=== PATIENT | female | born 1985 | race African-American/Black ===

== ENCOUNTER 2017-09-02 21:49 | Observation (INO) | payer BC, OTHER ==
[2017-09-02 22:58] LABS: Bilirubin Negative (Negative); Blood, Urine Negative (Negative); Clarity Clear (Clear); Glucose, Urine (Dipstick) Negative (Negative); Leukocyte Negative (Negative); Nitrite Negative (Negative); Protein, Urine (Dipstick) Negative (Neg-Trace); pH, Urine 7.5 (5.0-9.0)
[2017-09-02 23:22] LABS: Hemoglobin 11.7 g/dL (12.0-16.0); Mean Corpuscular HGB CONC 33.8 g/dL (32.0-36.0); Mean Corpuscular Hemoglobin 28.9 pg (27.0-31.0); Mean Corpuscular Volume 85.6 fl (81.0-99.0); Mean Platelet Volume 7.3 fL (7.4-10.4); Platelet Count 373 thou/uL (130-400); RBC Distribution Width 11.7 % (11.5-14.5); Red Blood Cell (RBC) Count 4.05 mill/uL (4.20-5.40); White Blood Cell (WBC) Count 15.9 thou/uL (4.8-10.8)
[2017-09-02 23:23] LABS: BHCG - Serum Negative (NEGATIVE); Pregs Control Background? CLEAR/WHITE (CLR/WHITE); Pregs Control Bar Appear? YES (CONTROL BAR)
[2017-09-02 23:32] LABS: Band 2 % (5-11); Eosinophils 2 % (0-10); Lymphocytes 14 % (21-51); MDiff Complete? YES; Monocytes 7 % (0-10); Neutrophil 75 % (42-75)
[2017-09-02 23:33] LABS: ALT (SGPT) 12 U/L (8-55); AST (SGOT) 17 U/L (5-34); Alkaline Phosphatase 88 U/L (40-150); Anion Gap 12 mmol/L (10-20); BUN (Urea Nitrogen) 11 mg/dL (7.0-18.7); Bilirubin, Total 0.3 mg/dL (0.2-1.2); Calc. Creatinine Clearance 0 mL/min (70-130); Calcium 8.6 mg/dL (7.8-10.44); Carbon Dioxide 24 mmol/L (22-29); Chloride 105 mmol/L (98-107); Estimated GFR-MDRD Greater than 90; Glucose 108 mg/dL (70-105); Lipase 58 U/L (8-78); Potassium 3.8 mmol/L (3.5-5.1); Sodium 137 mmol/L (136-145)
[2017-09-03] MEDS ORDERED: Piperacillin/Tazobactam 4.5 GM VIAL ONE (01:10)
[2017-09-03] MEDS ORDERED: Ondansetron HCl/PF 4 MG/2 ML Vial IVP PRN ×3 (02:35→14:44)
[2017-09-03] MEDS ORDERED: Ondansetron ODT 4 MG TAB SL PRN (02:35)
[2017-09-03] MEDS ORDERED: Morphine 4 MG/ML VIAL SLOW IVP PRN ×3 (02:35→15:45)
[2017-09-03 02:51] VITALS: BMI 40.7
[2017-09-03] MEDS: Dextrose 5 %-0.45 % NaCl 1,000 ML IV SCH ×2 (03:00→17:46)
[2017-09-03] MEDS: Piperacillin/Tazobactam 3.375 GM in Sodium Chloride 0.9% 100 ML IVPB SCH ×2 (06:40→11:25)
--- NOTE | 2017-09-03 06:52 | CT ---
CT ABDOMEN AND PELVIS WITH CONTRAST: INDICATIONS: Right lower quadrant pain. Nausea and vomiting. FINDINGS: There is a borderline sized appendix with a luminal diameter of 8-9 mm. Internal air is present, alt loc there is a slight degree of wall prominence and minimal periappendiceal edema is present. No h ydronephrosis of the kidneys. The liver and spleen are grossly unremarkable. No periappendiceal inf lammation. No small bowel obstruction. No pneumoperitoneum. A fat containing umbilical hernia is p resent, noninflamed in appearance. Dependent subcutaneous edema is incidentally noted. No significa nt abnormality at the imaged lung bases. Regional skeletal structures reveal no acute findings. The re are scattered bilateral subcentimeter parenchymal hypodensities of each kidney, too small to furth er characterize. An intrauterine device is incidentally noted. There is heterogeneity of the uterus and adnexa. IMPRESSION: CT findings that may indicate early, uncomplicated appendicitis. Recommend clinical correlation as n ecessary. Surgical consultation may also be obtained. POS: [facility]
--- NOTE | 2017-09-03 07:14 | HP ---
CHIEF COMPLAINT: Right lower quadrant abdominal pain. HISTORY OF PRESENT ILLNESS: This is a 32-year-old female who reports a 2-day history of diarrhea; ho wever, last night about 6:00 p.m. she started developing right lower quadrant pain, some nausea, no v omiting, no previous episodes. She is 8 months . Her last menstrual period was 08/26/2017 through the . PAST MEDICAL HISTORY: Morbid obesity and hypothyroidism. PAST SURGICAL HISTORY: She had an ACL repair in 2000. MEDICATIONS: Levothyroxine 100 mcg daily. ALLERGIES: No known drug allergies. SOCIAL HISTORY: She is . She is a [employer] coordinator. No tobacco, rare alcohol. FAMILY HISTORY: Noncontributory. PHYSICAL EXAMINATION: VITAL SIGNS: Temperature 98.6, pulse 82, blood pressure 121/80. GENERAL: Morbidly obese female in minimal distress. HEENT: Unremarkable. LUNGS: Clear. HEART: Regular rate and rhythm. ABDOMEN: Soft, tender in the right lower quadrant. No Rovsing. EXTREMITIES: Unremarkable. LABORATORY AND X-RAY FINDINGS: White count 15.9, H&H 11 and 34, platelet count 373. Electrolytes ar e fine. Elevated glucose at 108. Urinalysis clear. CT scan shows appendicitis. Her hCG is negativ e. CONSENT: I have discussed the planned procedure as well as risk of bleeding, infection, injury to sammy wel, bladder, need to open. She understands and gives informed consent.
[2017-09-03 11:21] VITALS: TEMP 98.5
[2017-09-03] MEDS ORDERED: CEFAZOLIN/Water 2 GM/20 ML SYRINGE ONE (13:04)
[2017-09-03] MEDS ORDERED: Bupivacaine/Epinephrine 0.25% 30 ML VIAL ONE (13:15)
[2017-09-03] MEDS ORDERED: Fentanyl 250 MCG/5 ML VIAL ONE (13:16)
[2017-09-03] MEDS ORDERED: Midazolam HCl 2 mg/2 ml Vial ONE (13:16)
[2017-09-03] MEDS ORDERED: Succinylcholine Chloride 20 MG/ML 10 ml SYRINGE FS ONE (13:41)
[2017-09-03] MEDS ORDERED: PROPOFOL 200 MG/20 ML VIAL ONE (13:41)
[2017-09-03] MEDS ORDERED: Glycopyrrolate 0.2 MG/ML 5 ML SYRINGE ONE (13:41)
[2017-09-03] MEDS ORDERED: Lidocaine 1% PF 5 ML VIAL ONE (13:41)
[2017-09-03] MEDS ORDERED: hydrALAZINE 20 MG/ML VIAL SLOW IVP PRN (14:20)
[2017-09-03] MEDS ORDERED: Dextrose 5% in Water 1,000 ML IV PRN (14:20)
[2017-09-03] MEDS ORDERED: Promethazine HCl 25 MG/ML VIAL IM PRN ×2 (14:20→14:44)
[2017-09-03] MEDS ORDERED: Dextrose 50% Abboject 50 ML SYRINGE SLOW IVP PRN (14:20)
[2017-09-03] MEDS ORDERED: HYDROcodone/Acetaminophen 10/325 mg Tablet PO PRN ×2 (14:20)
[2017-09-03] MEDS ORDERED: Lactated Ringer's 1,000 ML IV SCH (14:30)
[2017-09-03] MEDS ORDERED: Meperidine HCl/PF 25 MG/ML VIAL SLOW IVP PRN (14:44)
[2017-09-03] MEDS ORDERED: Ketorolac Tromethamine 30 MG/ML VIAL IVP PRN (14:44)
[2017-09-03] MEDS ORDERED: Morphine Sulfate 2 MG/ML SYRINGE SLOW IVP PRN (14:44)
[2017-09-03] MEDS ORDERED: HYDROmorphone 2 MG/ML VIAL SLOW IVP PRN (14:44)
[2017-09-03] MEDS ORDERED: Promethazine HCl 25 MG/ML VIAL SLOW IVP PRN (14:44)
[2017-09-03] MEDS ORDERED: Fentanyl 100 MCG/2 ML VIAL ONE (14:55)
[2017-09-03] MEDS ORDERED: Ketorolac Tromethamine 30 MG/ML VIAL IVP SCH (18:00)
[2017-09-03] MEDS ORDERED: Acetaminophen 325 MG TAB PO PRN (18:04)
--- NOTE | 2017-09-03 18:21 | OP ---
PREOPERATIVE DIAGNOSIS: Acute appendicitis. SURGEON: Trent Sutton M.D. PROCEDURE PERFORMED: Laparoscopic appendectomy. INDICATIONS: This is a 32-year-old female, who came in with a 12-hour history of right lower quadran t pain. CT showed appendicitis. FINDINGS: Acute suppurative nonperforated appendicitis. PROCEDURE IN DETAIL: After informed consent was obtained, the patient was taken the operating room, given general endotracheal anesthesia, placed in supine position. The abdomen was prepped and draped in usual fashion. Local anesthesia infiltrated subcutaneously and deep. A 12-mm incision was perfo rmed subumbilical. Subcutaneous divided sharply. The fascia grasped two stay sutures of [address] aced to either side of midline. Midline incised. Digital palpation revealed no local adhesions. A blunt 10/12 mm trocar inserted. Pneumoperitoneum was created to a pressure of 15 mmHg. Zero degree laparoscope inserted under direct vision. Two 5-mm ports were placed, one suprapubic and one right l ateral abdomen. The appendix was found. The mesoappendix divided with the LigaSure. The base of th e appendix was divided utilizing the linear 45 mm white load stapler. The appendix was placed in an Endosac and removed from the abdomen in an Endosac. Hemostasis was assured. Trocars and retractors removed. The fascia closed with interrupted 0 Vicryl sutures. Skin closed with interrupted 4-0 Rapi de. Dermabond applied. The patient tolerated the procedure well and was transferred to recovery in good condition. Sponge and needle count verified correct x2.
[2017-09-03] MEDS ORDERED: Piperacillin/Tazobactam 3.375 GM in Sodium Chloride 0.9% 100 ML IVPB SCH (19:00)
[2017-09-03 20:46] VITALS: BP 129/79
[2017-09-03] MEDS ORDERED: Pantoprazole 40 MG VIAL IVP SCH (21:00)
[2017-09-03] MEDS ORDERED: Famotidine/PF 20 mg/2ml Vial SLOW IVP SCH ×2 (21:00)
[2017-09-03] MEDS ORDERED: Famotidine 20 MG TAB PO SCH (21:00)
[2017-09-03 22:45] LABS: Chlamydia by PCR Not Detected (NotDetected); GC by PCR Not Detected (NotDetected)
[2017-09-04] MEDS ORDERED: Enoxaparin Sodium 40 MG/0.4 ML SYRINGE SC SCH (09:00)
--- NOTE | 2017-09-04 15:23 | DIS ---
DISCHARGE DIAGNOSIS: Acute appendicitis. PROCEDURE DURING ADMISSION: Laparoscopic appendectomy. HOSPITAL COURSE: The patient was admitted, given IV antibiotics, taken to the operating room where s he underwent a laparoscopic appendectomy. She was found to have acute appendicitis. Postoperatively , she has done well. She is discharged home tolerating a diet, on p.o. on Slater and Zofran. She em l follow up with me in 2 weeks.
== END 2017-09-03 22:05 | disposition home or self-care (01) ==
LOC: SCSER 21:49 → SJJU 09-03 02:47
PROVIDERS: ADMIT Surgery; ATTEND Surgery
PROC: 0DTJ4ZZ Resection of Appendix, Percutaneous Endoscopic Approach (ICD-10-PCS; principal; 2017-09-03)
DX: K35.80 Unspecified acute appendicitis (principal); E66.01 Morbid (severe) obesity due to excess calories; E03.9 Hypothyroidism, unspecified; Z68.41 Body mass index [BMI] 40.0-44.9, adult; Z79.899 Other long term (current) drug therapy
CPT/HCPCS: 74177; 80053; 81003; 83690; 84703; 85025; 87480; 87491; 87510; 87591; 87660; 88304; 96361; 96365; 96366; 96374; 96375; G0378; J2001; J2250; J2270; J2405; J2543; J2704; J3010; J7050